=== PATIENT | male | born 1965 | race Hispanic/Latino ===

== ENCOUNTER 2019-05-28 08:04 | Emergency (ER) | payer BC, OTHER ==
[~2019-05-28] VITALS: Ht 167.6 cm; Wt 81.6 kg
--- OUTSIDE RECORDS SUMMARY | 2019-05-28 08:07 | XMS REPORT | Summary of Care ---
Author Author Emily Casas M.A. Unknown Address Unknown Phone Unavailable Care Team Providers Care Sales Operations Name Role Phone JUANA ROWAN DO Unavailable Unavailable Unavailable Unavailable Functional Status Name Dates Details Functional status health issues are not documented Status: Name Dates Details Cognitive status health issues are not documented Status: Problems Name Dates Details Right knee pain (719.46, M25.561) Status: Active Acute medial meniscal tear, right, initial encounter (836.0, S83.241A) Status: Active Sensation of fullness in left ear (388.8, H93.8X2) Status: Active Obstructive sleep apnea (327.23, G47.33) Status: Active Medications Name Dates Details Losartan Potassium TABS R.N. Active Finasteride TABS * Refills: 0 R.N. Active Allergies and Adverse Reactions Name Dates Details No Known Drug Allergies (Allergy) Status: Active Past Medical History Name Dates Details History of High blood pressure (401.9, I10) Status: Resolved Procedures Procedure Dates Details [O] Basic Audiometry Screen Date: 03-Feb-2017 Polysomnography, sleep staging with 4+ parameters of sleep, attended by a technologist Date: 03-Feb-2017 History Of Prior Surgery Completed Immunization Name Dates Details Immunizations not documented Social History Name Dates Details - Status: Name Dates Details Never smoker Vital Signs Date Test Result Details 03-Feb-20179:34 BP Systolic 136 mm[Hg] Status: BP Diastolic 91 mm[Hg] Status: Height 66 in Status: Weight 183.375 lb Status: Body Mass Index Calculated 29.6 kg/m2 Status: Body Surface Area Calculated 1.93 m2 Status: Heart Rate 62 /min Status: Results Date Description Value Details Results not documented Plan of Care Name Dates Details Planned Observations Planned Goals not documented Planned Encounters Appointment; LUIS OROPEZA On: 28-Feb-2017 15:00 Instructions Name Dates Details Instructions not documented Encounters Appointment; ALEXEY EWLDON M.D. Encounter Diagnosis: Problem not documented On: 17-Mar-2016 14:30 Appointment; ALEXEY WELDON M.D. Encounter Diagnosis: Problem not documented On: 14-Apr-2016 15:30 Appointment; MAIN PAYNE M.D. Encounter Diagnosis: Problem not documented On: 03-Feb-2017 8:45
[2019-05-28 09:47] VITALS: BP 130/81
--- NOTE | 2019-05-28 09:51 | Diagnostic Imaging Report ---
Exam: Head CT without contrast History: Lightheadedness, dizziness, high blood pressure Comparison studies: None Technique: Axial images were obtained from the skull base to the vertex. Coronal and sagittal images reconstructed from the axial data. Dose modulation, iterative reconstruction, and/or weight based adjustment of the mA/kV was utilized to reduce the radiation dose to as low as reasonably achievable. Radiation dose: Total DLP: 969.14 mGy*cm. Estimated effective dose: DLP x 0.015 Intravenous contrast: None Findings: Scalp: No abnormalities. Bones: No fractures, blastic or lytic lesions. Brain sulci: Appropriate for age. Ventricles: Normal in size and configuration. No hydrocephalus. Extra-axial spaces: No masses, no fluid collection. Parenchyma: No abnormal densities. No masses, acute hemorrhage, acute or chronic vascular insults. Sellar/suprasellar region: No abnormalities. Craniocervical junction: Patent foramen magnum. No Chiari one malformation. Included paranasal sinuses: Nonspecific mucosal thickening in the right max or sinus. Remaining included sinuses are clear. Middle ear and included mastoid cavities: Clear. Incidental findings: Atherosclerotic calcifications in the carotid siphons.. IMPRESSION: No acute intracranial abnormalities. Signed by: Dr. Brando Fox M.D. on 05/28/2019 9:48 AM
== END 2019-05-28 10:09 | disposition home or self-care (01) ==
LOC: FSED 08:04
DX: R42 Dizziness and giddiness (principal); R55 Syncope and collapse
CPT/HCPCS: 70450; 80053; 84484; 85025; 93005; 99283